=== PATIENT | male | born 1965 | race Caucasian/White ===

== ENCOUNTER 2020-12-10 15:09 | Emergency (ER) | payer OTHER ==
[~2020-12-10] VITALS: Ht 182.9 cm; Wt 79.4 kg
[2020-12-10] MEDS ORDERED: CASIRIVIMAB/IMDEVIMAB 10 ML in SODIUM CHLORIDE 0.9% 100 ML IV ONE (15:30)
== END 2020-12-10 18:14 | disposition home or self-care (01) ==
LOC: ER 15:34
DX: U07.1 COVID-19 (principal)
CPT/HCPCS: 99284; J7050